=== PATIENT | female | born 1945 | race Caucasian/White ===

== ENCOUNTER → 2017-08-28 10:04 | Outpatient (CLI) | payer MEDICARE, OTHER, SELFPAY ==
--- NOTE | 2017-08-28 | DI.ECHO.S_ITS ---
[facility] +---------+ [facility] +---------+ : : [address] : [address] : : : : [phone] : : : : Phone: [phone] +---------+ Echocardiogram Report + + :Name: ELIAS CAMP Study Date: 08/28/2017 Height: 62 in : :[facility] Exam Location: IS Weight: 144 lb : : Gender: Female BSA: 1.7 m2 : :: 1945 Age: 71 yrs BP: 150/80 mmHg: :Reason For Study: Aortic valve stenosis : :Ordering Physician: Madi : :Zeke Performed By: Audrey Page : + + Interpretation Summary The aortic valve is bicuspid. The peak aortic velocity is 2.4 m/sec. The calculated aortic valve area is 1.7 cm2. The left ventricle is normal in size. There is mild concentric left ventricular hypertrophy. The ejection fraction is estimated to be 60-65%. No other echocardiographic abnormalities seen. Procedure: A two-dimensional transthoracic echocardiogram with color flow and Doppler was performed. The study quality was technically adequate. Comparison is made with the echocardiogram of 05/09/15. The patient was in normal sinus rhythm during the exam. Left Ventricle: The left ventricle is normal in size. There is mild concentric left ventricular hypertrophy. The ejection fraction is estimated to be 60-65%. There are no focal wall motion abnormalities. Assessment of diastolic parameters indicates a relaxation abnormality of the left ventricle, consistent with normal filling pressures. Right Ventricle: The right ventricle is normal in size and function. Atria: The left atrium is mildly dilated. Right atrial size is normal. There is no Doppler evidence for an interatrial shunt. Mitral Valve: The mitral valve is normal in structure and function. There is mild mitral annular calcification. There is trace mitral regurgitation. Aortic Valve: The aortic valve is not well visualized. The aortic valve is bicuspid. The peak aortic velocity is 2.4 m/sec. The peak aortic velocity on the previous exam was 2.7 m/sec. The calculated aortic valve area is 1.7 cm2. The aortic valve mean gradient is 12.4 mmHg. There is mild aortic stenosis. There is trace aortic regurgitation. Tricuspid Valve: The tricuspid valve is normal in structure and function. There is a trace or physiologic amount of tricuspid regurgitation. Pulmonary artery pressures cannot be estimated because of the lack of a measurable TR jet velocity. Pulmonic Valve: The pulmonic valve is not well visualized. There is a trace or physiologic amount of pulmonic regurgitation. Great Vessels: The aortic root is mildly dilated. The ascending aorta could not be visualized. The aortic arch could not be visualized. The pulmonary artery is not well visualized, but is probably normal size. The IVC is of normal diameter and collapses greater than 50% with a sniff. This suggests a low right atrial pressure of 3 mm Hg. Pericardium/ Pleura There is no pericardial effusion. There is no pleural effusion. MMode/2D Measurements & Calculations LVIDd: 4.2 cm LVOT diam: 2.2 cm LVIDs: 3.3 cm Ao root diam: 3.9 cm FS: 20.9 % EPSS: 0.55 cm IVSd: 0.65 cm LVPWd: 0.88 cm LV gonzales. diameter/BSA (cm/m^2): 2.5 LV sys. diameter/BSA (cm/m^2): 2.0 LA dimension: 1.6 cm RA long axis: 5.0 cm LA A2 area: 21.7 cm2 RA area: 15.3 cm2 LA A4 area: 18.9 cm2 RA vol: 39.8 ml LA length (vol): 5.3 cm RA : 23.9 ml/m2 LA vol: 65.7 ml IVC diam: 0.95 cm LA vol index: 39.5 ml/m2 RVD1 (basal): 3.7 cm TAPSE: 2.1 cm Doppler Measurements & Calculations Ao V2 max: 243.8 cm/sec LVOT Max Abdon: 104.7 cm/sec Ao V2 mean: 166.0 cm/sec LV V1 max P.4 mmHg Ao max P.8 mmHg LV V1 VTI: 23.5 cm Ao mean P.4 mmHg JANAE(I,D): 1.7 cm2 Ao V2 VTI: 51.5 cm JANAE(V,D): 1.6 cm2 sev ratio: 0.46 JANAE indexed to BSA (cm^2/m^2): 1.0 MV E max abdon: 53.8 cm/sec PA V2 max: 67.2 cm/sec MV A max abdon: 77.5 cm/sec PA V2 mean: 44.4 cm/sec MV E/A: 0.69 PA mean P.93 mmHg Med Peak E' Abdon: 4.7 cm/sec PA Accel Time: 0.11 sec E/E' med: 11.5 Lat Peak E' Abdon: 6.9 cm/sec E/E' lat: 7.8 E/e' average: 9.7 MV dec time: 0.33 sec MV P1/2t: 95.3 msec MV P1/2t max badon: 54.2 cm/sec MVA(2t): 2.3 cm2 Reading Physician:03:41 PM
== END ==
PROVIDERS: Family Provider Specialist; PCP Specialist; Visit Provider Internal Medicine Cardiovascular Disease
DX: I35.0 Nonrheumatic aortic (valve) stenosis (principal)
CPT/HCPCS: 93306

== ENCOUNTER → 2019-09-09 12:02 | Outpatient (CLI) | payer MEDICARE, OTHER, SELFPAY ==
--- NOTE | 2019-09-09 | DI.ECHO.S_ITS ---
[place] +---------+ Hospital +---------+ : : [address] [place] : : : : [phone] : : : : Phone: [phone]---------+ Echocardiogram Report + + :Name: ELIAS CAMP Study Date: 09/09/2019 Height: 62 in : :[facility] Weight: 144 lb : : Gender: Female BSA: 1.7 m2 : :: 1945 Age: 73 yrs BP: 150/78 mmHg: :Reason For Study: Bicuspid Aortic Valve : :Ordering Physician: Layne : :Liza So Performed By: Effie Chavez : :Referring: LAYNE GONSALEZ : + + Interpretation Summary Left ventricular systolic function remains normal with an estimated ejection fraction of 65 to 70% without any focal wall motion abnormality. Visually, there is at least borderline concentric LVH. There is likely a diastolic relaxation abnormality but normal filling pressures. There has been no appreciable change since the previous study. The right ventricle appears normal. Pulmonary artery systolic pressure cannot be estimated but CVP is likely 3 mmHg. Both atria are normal in size and have mildly decreased in size since the previous exam. There is a moderately calcified, bicuspid aortic valve with mildly reduced leaflet mobility with probable mild aortic stenosis that is unchanged from the previous exam. Peak transvalvular velocity is 2.4 m/s with a mean gradient of 13 mmHg which is essentially identical to that of the previous study. There continues to be trivial aortic regurgitation that is unchanged. There is no other significant valvular abnormality. The ascending aorta is borderline enlarged and the aortic arch is mildly enlarged. There is a very trivial pericardial effusion seen on today's exam which was not clearly apparent on the previous study. Procedure: A two-dimensional transthoracic echocardiogram with color flow and Doppler was performed. The study quality was technically adequate. Comparison is made with the echocardiogram of 08/28/2017. Left Ventricle: The left ventricle is normal in size. There is borderline concentric left ventricular hypertrophy. Left ventricular systolic function is normal without focal wall motion abnormalities. The ejection fraction is estimated to be 65-70%. Diastolic parameters suggest a relaxation abnormality of the left ventricle, consistent with probable normal filling pressures. There has been no significant change since the previous study. Right Ventricle: The right ventricle is normal in size and function. This is unchanged compared to the previous study. Atria: Both atria are normal in size. Both atria have mildly decreased in size since the prior echo exam. There is no Doppler evidence for an interatrial shunt. Mitral Valve: There is mild mitral annular calcification. The mitral valve leaflets appear borderline thickened, but open well. There is trace mitral regurgitation. Aortic Valve: The aortic valve is bicuspid. The aortic valve is moderately calcified. There is mildly reduced leaflet mobility. There is mild aortic stenosis. This is unchanged compared to the previous study. The aortic valve mean gradient is 13 mmHg. The peak aortic velocity is 2.4 m/sec. The calculated aortic valve area is 1.8 cm2. There is trace aortic regurgitation. Tricuspid Valve: The tricuspid valve is normal in structure and function. There is trace tricuspid regurgitation. Pulmonary artery pressures cannot be estimated because of the lack of a measurable TR jet velocity but the IVC suggests a CVP of around 3 mmHg. Pulmonic Valve: The pulmonic valve is not well visualized. There is no pulmonic valvular regurgitation. There is no other significant valvular heart disease. Great Vessels: The aortic root is normal size. The ascending aorta is at the upper limits of normal in size. The aortic arch is mildly enlarged. The IVC is of normal diameter and collapses greater than 50% with a sniff. This suggests a low right atrial pressure of 3 mm Hg. Pericardium/ Pleura There is a trivial pericardial effusion noted. There is no pleural effusion. MMode/2D Measurements & Calculations LVIDd: 4.4 cm LVOT diam: 2.2 cm LVIDs: 2.8 cm Ao root diam: 3.6 cm FS: 36.3 % asc Aorta Diam: 3.3 cm EPSS: 0.61 cm Ao Arch Diam (Prox Trans): 3.3 cm IVSd: 0.80 cm LVPWd: 0.84 cm LV gonzales. diameter/BSA (cm/m^2): 2.6 LV sys. diameter/BSA (cm/m^2): 1.7 LA A2 area: 20.7 cm2 RA long axis: 3.9 cm LA A4 area: 12.5 cm2 RA area: 11.8 cm2 LA length (vol): 4.1 cm RA vol: 30.2 ml LA vol: 53.0 ml RA : 18.2 ml/m2 LA vol index: 31.9 ml/m2 IVC diam: 0.68 cm RVD1 (basal): 2.9 cm TAPSE: 2.0 cm Doppler Measurements & Calculations Ao V2 max: 237.3 cm/sec LVOT Max Abdon: 115.3 cm/sec Ao V2 mean: 170.4 cm/sec LV V1 max P.3 mmHg Ao max P.5 mmHg LV V1 VTI: 23.7 cm Ao mean P.1 mmHg JANAE(I,D): 1.8 cm2 Ao V2 VTI: 48.8 cm JANAE(V,D): 1.8 cm2 sev ratio: 0.49 JANAE indexed to BSA (cm^2/m^2): 1.1 MV E max abdon: 58.7 cm/sec TR max abdon: 207.0 cm/sec MV A max abdon: 88.2 cm/sec TR max P.2 mmHg MV E/A: 0.67 PA V2 max: 84.0 cm/sec Med Peak E' Abdon: 3.5 cm/sec PA V2 mean: 55.9 cm/sec E/E' med: 17.0 PA mean P.5 mmHg Lat Peak E' Abdon: 7.3 cm/sec E/E' lat: 8.0 E/e' average: 12.5 MV dec time: 0.26 sec SV(LVOT): 88.4 ml Reading Physician:PM
== END ==
PROVIDERS: Family Provider Specialist; PCP Specialist; Referring Provider Hospitalist; Visit Provider Hospitalist
DX: Q23.1 Congenital insufficiency of aortic valve (principal); Q23.0 Congenital stenosis of aortic valve
CPT/HCPCS: 93306

== ENCOUNTER 2020-08-08 08:47 | Day surgery (SDC) | payer MEDICARE, OTHER, SELFPAY ==
[2020-08-08] MEDS: CATARACT EYE COMPOUND (10 DROPS/SYRINGE) 3 DROPS EYE-OP (09:38)
[2020-08-08] MEDS: PROPARACAINE 0.5% OPHTH SOL 2 DROPS EYE-OP (09:38)
[2020-08-08 09:43] VITALS: BP 124/75; PULSE 71; RESP 16; TEMP 36.7; O2SAT 100; BMI 26.2
--- NOTE | 2020-08-08 10:16 | P.OP_ITS ---
Operative Date/Time/Diagnoses Pre-op diagnosis: Nuclear Cataract Left eye Post-op diagnosis: same Procedure & Clinicians Same procedure as scheduled: Yes Surgeon: Maikol Hester Anesthesia Type: MAC +/- and Sedation Operative Notes Procedure in detail: Patient brought to the operating suite. Tetracaine drops placed in the left eye. Marking instrument was used to ga vertical and horizontal meridians. Patient was prepped and draped in sterile manner. Wire lid speculum was placed in the eye. Marking instrument was used to ga 170 degree meridian. Betadine drops were placed on the eye. This was irrigated. Lidocaine jelly was placed on the eye. A paracentesis port was created with a side-port blade. 0.1 mL 1% preservative free lidocaine was injected into the anterior chamber. The anterior chamber was deepened with viscoelastic. 2.6 mm keratome was used to create a temporal clear corneal incision. Cystotome and Utrata forceps were used to create continuous tear capsulorrhexis. Balanced salt solution was used to hydro dissect the nucleus. The phacoemulsification handpiece was inserted and the nucleus was removed using the stop and chop technique. The irrigation aspiration handpiece was inserted and the remaining cortex was removed. Anterior chamber was deepened with viscoelastic. An Agosto [id number] intraocular lens with a power of 22.0 was injected into the capsular bag. Irrigation aspiration handpiece was inserted and the remaining viscoelastic was removed. The lens was rotated to the 170 degree meridian. Incision was hydrated with balanced salt solution and found to be leak free with pressure with Weck- Maria Esther sponges. 0.1 mL Vigamox injected anterior chamber. 0.3 mL Kenalog 10 mg was injected subconjunctivally. Lid speculum was removed. The patient left the operating room in excellent condition. Complications: none Post-operative Condition: stable Disposition: same day surgery
--- NOTE | 2020-08-08 10:16 | PM.PREOP ---
Pre-operative Note Interval Note History & Physical reviewed/Exam performed by Physician: Yes Changes to H&P: No
[2020-08-08] MEDS: MOXIFLOXACIN INJ 4 MG/0.8 ML VIAL 0.5 MG EYE-OP (10:54)
[2020-08-08] MEDS: LIDOCAINE 2% (GLYDO) 6 ML GEL TOP (10:54)
[2020-08-08] MEDS: PHENYLEPHRINE/LIDOCAINE VIAL (OR) 0.2 ML EYE-OP (10:54)
[2020-08-08] MEDS: TRIAMCINOLONE 50 MG/5 ML VIAL INJ (10:54)
[2020-08-08] MEDS: BALANCED SALT IRRIG SOLN NO.2 500 ML, EPINEPHrine 1 MG IRR (10:55)
[2020-08-08] MEDS: TETRACAINE 0.5% OPHTH DROPS 4 ML 2 DROPS EYE-OP (10:55)
[2020-08-08] MEDS: CHONDROIDTIN/SOD HYALURONATE 1.05 ML SYRINGE INTRAOCULA (10:55)
[2020-08-08 11:18] VITALS: BP 116/70; PULSE 69; RESP 16; TEMP 36.3; O2SAT 97
== END 2020-08-08 11:17 | disposition home or self-care (01) ==
PROVIDERS: Family Provider Specialist; PCP Specialist; Referring Provider Ophthalmology; Visit Provider Ophthalmology
PROC: (CPT 66984; principal; 2020-08-08 10:45)
DX: H25.12 Age-related nuclear cataract, left eye (principal); G62.9 Polyneuropathy, unspecified; K21.9 Gastro-esophageal reflux disease without esophagitis
CPT/HCPCS: 66984; J0171; J2250; J3010; J3301; V2787

== ENCOUNTER 2020-08-22 10:57 | Day surgery (SDC) | payer MEDICARE, OTHER, SELFPAY ==
[2020-08-22 11:30] VITALS: BP 156/78; PULSE 69; RESP 13; TEMP 36.4; O2SAT 98; BMI 25.7
[2020-08-22] MEDS: PROPARACAINE 0.5% OPHTH SOL 2 DROPS EYE-OP (11:40)
[2020-08-22] MEDS: CATARACT EYE COMPOUND (10 DROPS/SYRINGE) 3 DROPS EYE-OP (11:40)
[2020-08-22 11:46] VITALS: BP 134/74
--- NOTE | 2020-08-22 12:26 | P.OP_ITS ---
Operative Date/Time/Diagnoses Pre-op diagnosis: Nuclear cataract right eye Procedure & Clinicians Procedure: Cataract Surgery Same procedure as scheduled: Yes Surgeon: Maikol Hester Anesthesia Type: MAC +/- and Sedation Operative Notes Procedure in detail: Patient brought to the operating suite. Tetracaine drops placed in the right eye. Marking instrument was used to ga vertical and horizontal meridians. Patient was prepped and draped in sterile manner. Wire lid speculum was placed in the eye. Marking instrument was used to ga 10 degree meridian. Betadine drops were placed on the eye. This was irrigated. Lidocaine jelly was placed on the eye. A paracentesis port was created with a side-port blade. 0.1 mL 1% preservative free lidocaine was injected into the anterior chamber. The anterior chamber was deepened with viscoelastic. 2.6 mm keratome was used to create a temporal clear corneal incision. Cystotome and Utrata forceps were used to create continuous tear capsulorrhexis. Balanced salt solution was used to hydro dissect the nucleus. The phacoemulsification handpiece was inserted and the nucleus was removed using the stop and chop technique. The irrigation aspiration handpiece was inserted and the remaining cortex was removed. Anterior chamber was deepened with viscoelastic. An Agosto [id number] intraocular lens with a power of 21.0 was injected into the capsular bag. Irrigation aspiration handpiece was inserted and the remaining viscoelastic was removed. The lens was rotated to the 10 degree meridian. Incision was hydrated with balanced salt solution and found to be leak free with pressure with Weck- Maria Esther sponges. 0.1 mL Vigamox injected anterior chamber. 0.3 mL Kenalog 10 mg was injected subconjunctivally. Lid speculum was removed. The patient left the operating room in excellent condition. Complications: none Post-operative Condition: stable Disposition: same day surgery
--- NOTE | 2020-08-22 12:26 | PM.PREOP ---
Pre-operative Note Interval Note History & Physical reviewed/Exam performed by Physician: Yes Changes to H&P: No
[2020-08-22] MEDS: PHENYLEPHRINE/LIDOCAINE VIAL (OR) 0.2 ML EYE-OP (12:46)
[2020-08-22] MEDS: LIDOCAINE 2% (GLYDO) 6 ML GEL TOP (12:47)
[2020-08-22] MEDS: CHONDROIDTIN/SOD HYALURONATE 1.05 ML SYRINGE INTRAOCULA (12:47)
[2020-08-22] MEDS: TRIAMCINOLONE 50 MG/5 ML VIAL INJ (12:47)
[2020-08-22] MEDS: BALANCED SALT IRRIG SOLN NO.2 500 ML, EPINEPHrine 1 MG IRR (12:48)
[2020-08-22] MEDS: TETRACAINE 0.5% OPHTH DROPS 4 ML 2 DROPS EYE-OP (12:48)
[2020-08-22] MEDS: MOXIFLOXACIN INJ 4 MG/0.8 ML VIAL 0.5 MG EYE-OP (12:48)
[2020-08-22 13:03] VITALS: BP 153/79; PULSE 71; RESP 16; TEMP 36.7; O2SAT 100
--- NOTE | 2020-08-22 13:07 | SUR.PHASEII ---
Pt ready to go, ride called, pt dressed and left in stable condition.
== END 2020-08-22 13:20 | disposition home or self-care (01) ==
PROVIDERS: Family Provider Specialist; PCP Specialist; Referring Provider Ophthalmology; Visit Provider Ophthalmology
PROC: (CPT 66984; principal; 2020-08-22 12:45)
DX: H25.11 Age-related nuclear cataract, right eye (principal); G62.9 Polyneuropathy, unspecified; I10 Essential (primary) hypertension
CPT/HCPCS: 66984; J0171; J2250; J3010; J3301; V2787

== ENCOUNTER → 2021-08-22 13:26 | Outpatient (CLI) | payer MEDICARE, OTHER, SELFPAY ==
--- NOTE | 2021-08-22 | DI.ECHO.S_ITS ---
[place] +---------+ Hospital +---------+ : : [address] : [address] : : : : [phone] : : : : Phone: [phone] +---------+ Echocardiogram Report + + :Name: ELIAS CAMP Study Date: 08/22/2021 Height: 62 in : [id number]: Weight: 142 lb : : Gender: Female BSA: 1.7 m2 : :: 1945 Age: 75 yrs BP: 142/78 mmHg: :Reason For Study: Aortic, Biscupid Valve : : Performed By: Tamar Galvez : :Referring: BETTINA GILBERT : + + Interpretation Summary 1) Normal left ventricular thickness, size, wall motion, and systolic function (EF 65-70%). 2) Normal right ventricular size and function. 3) Mild aortic stenosis present (valve area 1.5cm2, mean gradient 17mmHg). 4) Compared to the Echo done 09/09/2019, no significant change. Procedure: A two-dimensional transthoracic echocardiogram with color flow and Doppler was performed. Images from the parasternal window were difficult to obtain and are suboptimal in quality. Comparison is made with the echocardiogram of 09/09/2019. The patient was in normal sinus rhythm during the exam. The patient had occasional PVCs during the exam. Left Ventricle: The left ventricle appears normal in size, wall thickness, and systolic function without any focal wall motion abnormalities. The ejection fraction is estimated to be 65-70%. Diastolic parameters suggest a relaxation abnormality of the left ventricle, consistent with probable normal filling pressures. Right Ventricle: The right ventricle is normal in size and function. Atria: The left atrium is moderately dilated. Right atrial size is normal. There is no Doppler evidence for an interatrial shunt. Mitral Valve: There is mild mitral annular calcification. There is trace mitral regurgitation. Aortic Valve: The aortic valve is not well visualized. The aortic valve is moderately calcified. The peak aortic velocity is 2.8 m/sec. The peak aortic velocity on the previous exam was 2.4 m/sec. The aortic valve mean gradient is 17.1 mmHg. The calculated aortic valve area is 1.5 cm2. There is trace aortic regurgitation. Tricuspid Valve: The tricuspid valve leaflets are thin and pliable. There is trace tricuspid regurgitation. The right ventricular systolic pressure is estimated to be at least 23 mmHg based on an estimated right atrial pressure of 3 mm Hg. Pulmonic Valve: The pulmonic valve is not well visualized. Great Vessels: The aortic root is normal size. The ascending aorta is at the upper limits of normal in size. The aortic arch is normal in size. The IVC is of normal diameter and collapses greater than 50% with a sniff. This suggests a low right atrial pressure of 3 mm Hg. Pericardium/ Pleura There is no pericardial effusion. MMode/2D Measurements & Calculations LVIDd: 3.7 cm LVOT diam: 2.2 cm LVIDs: 1.9 cm Ao root diam: 3.4 cm FS: 49.5 % asc Aorta Diam: 3.5 cm EPSS: 0.75 cm Ao Arch Diam (Prox Trans): 2.4 cm IVSd: 0.79 cm LVPWd: 0.88 cm LV gonzales. diameter/BSA (cm/m^2): 2.2 LV sys. diameter/BSA (cm/m^2): 1.1 LA A2 area: 21.3 cm2 RA long axis: 4.1 cm LA A4 area: 16.3 cm2 RA area: 12.1 cm2 LA length (vol): 4.4 cm RA vol: 30.4 ml LA vol: 67.1 ml RA : 18.4 ml/m2 LA vol index: 40.6 ml/m2 IVC diam: 0.87 cm RVD1 (basal): 3.4 cm TAPSE: 2.3 cm Doppler Measurements & Calculations Ao V2 max: 277.9 cm/sec LVOT Max Abdon: 110.5 cm/sec Ao V2 mean: 195.2 cm/sec LV V1 max P.9 mmHg Ao max P.9 mmHg LV V1 VTI: 21.7 cm Ao mean P.1 mmHg JANAE(I,D): 1.5 cm2 Ao V2 VTI: 54.6 cm JANAE(V,D): 1.5 cm2 sev ratio: 0.40 JANAE indexed to BSA (cm^2/m^2): 0.89 MV E max abdon: 66.6 cm/sec TR max abdon: 222.4 cm/sec MV A max abdon: 93.9 cm/sec TR max P.8 mmHg MV E/A: 0.71 PA V2 max: 87.4 cm/sec Med Peak E' Abdon: 6.2 cm/sec PA V2 mean: 58.9 cm/sec E/E' med: 10.8 PA mean P.6 mmHg Lat Peak E' Abdon: 6.3 cm/sec PA pr(Accel): 34.0 mmHg E/E' lat: 10.6 E/e' average: 10.7 MV dec time: 0.36 sec SV(AKILA): 80.0 ml Reading Physician:05:32 PM
== END ==
PROVIDERS: Family Provider Specialist; PCP Specialist; Referring Provider Internal Medicine Cardiovascular Disease; Visit Provider Internal Medicine Cardiovascular Disease
DX: Q23.0 Congenital stenosis of aortic valve (principal)
CPT/HCPCS: 93306

== ENCOUNTER → 2022-11-22 07:01 | Outpatient (CLI) | payer MEDICARE, OTHER, SELFPAY ==
[2022-11-22 09:21] LABS: BUN Creatinine Ratio 19.7 (6-22); Blood Urea Nitrogen 12 mg/dL (7-17); Calcium 9.2 mg/dL (8.4-10.2); Carbon Dioxide 26 mmol/L (22-32); Chloride 104 mmol/L (98-107); Cholesterol 198 mg/dL (140-199); Estimated Glomerular Filt Rate > 60 mL/min (>60); Glucose 98 mg/dL (80-110); HDL Cholesterol 53 mg/dL (40-60); HEMOLYSIS < 15 (0-50); LDL Cholesterol Calculated 122 mg/dL (<100); Magnesium 2.2 mg/dL (1.6-2.3); Potassium 4.1 mmol/L (3.4-5.1); Sodium 139 mmol/L (137-145); Triglycerides 115 mg/dL (35-150)
== END ==
PROVIDERS: Family Provider Specialist; PCP Specialist; Referring Provider Internal Medicine Cardiovascular Disease; Visit Provider Internal Medicine Cardiovascular Disease
DX: I10 Essential (primary) hypertension (principal)
CPT/HCPCS: 36415; 80048; 80061; 83735

== ENCOUNTER → 2022-12-31 09:39 | Outpatient (CLI) | payer MEDICARE, OTHER, SELFPAY ==
--- NOTE | 2022-12-31 | DI.ECHO.S_ITS ---
[place] +---------+ Hospital +---------+ : : [address] : [address] : : : : [phone] : : : : Phone: [phone] +---------+ Echocardiogram Report + + :Name: ELIAS CAMP Study Date: 12/31/2022 Height: 61 in : :[facility] ReadingLocation: Weight: 143 lb : : Gender: Female BSA: 1.6 m2 : :: 1945 Age: 77 yrs BP: 129/77 mmHg: :Reason For Study: ATHEROSCLEROSIS OF AORTA : :Ordering Physician: OFELIA, : :BETTINA Performed By: Effie Chavez : :Referring: BETTINA GILBERT : + + Interpretation Summary The left ventricle is normal in size and wall thickness. The left ventricular ejection fraction is normal. The ejection fraction is estimated to be 65-70%. No significant change in LVEF. The right ventricle is normal in size and function. The aortic valve is bicuspid. The aortic valve is moderately calcified. The peak aortic velocity is 2.8 m/sec. The aortic valve mean gradient is 20 mmHg. sev ratio: 0.40 The calculated aortic valve area is 1.3 cm2. The peak aortic velocity on the previous exam was 2.8 m/sec. There is mild to moderate aortic stenosis. There is mild luminal irregularity and echogenicity in the abdominal aorta, suggestive of aortic atherosclerotic disease. Mild atherosclerotic plaque(s) in the aortic arch. The IVC is of normal diameter and collapses greater than 50% with a sniff. This suggests a low right atrial pressure of 3 mm Hg. Procedure: A two-dimensional transthoracic echocardiogram with color flow and Doppler was performed. The study quality was technically adequate. Comparison is made with the echocardiogram of 08/22/2021. The patient was in sinus rhythm with heart rates between 71-83 bpm during the exam. Left Ventricle: The left ventricle is normal in size and wall thickness. There is no thrombus. The ejection fraction is estimated to be 65-70%. The left ventricular ejection fraction is normal. There are no focal wall motion abnormalities. MV E/A: 0.67 Med Peak E' Abdon: 3.8 cm/sec E/E' med: 15.8. Right Ventricle: The right ventricle is normal in size and function. Atria: The left atrial size is normal. Right atrial size is normal. There is no Doppler evidence for an interatrial shunt. Mitral Valve: There is mild mitral annular calcification. The mitral valve leaflets appear mildly thickened, but open well. No significant mitral valve stenosis. There is trace mitral regurgitation. Aortic Valve: The aortic valve is moderately calcified. The aortic valve is bicuspid. There is mild to moderate aortic stenosis. The peak aortic velocity is 2.8 m/sec. The aortic valve mean gradient is 20 mmHg. The calculated aortic valve area is 1.3 cm2. The peak aortic velocity on the previous exam was 2.8 m/sec. There is trace aortic regurgitation. Tricuspid Valve: The tricuspid valve is normal. There is trace tricuspid regurgitation. The right ventricular systolic pressure is estimated to be at least 26 mmHg based on an estimated right atrial pressure of 3 mm Hg. Pulmonic Valve: The pulmonic valve leaflets are thin and pliable; valve motion is normal. There is no pulmonic valvular regurgitation. Great Vessels: The aortic root is normal size. The dimensions of the ascending aorta are normal. There is mild luminal irregularity and echogenicity in the abdominal aorta, suggestive of aortic atherosclerotic disease. Mild atherosclerotic plaque(s) in the aortic arch. The IVC is of normal diameter and collapses greater than 50% with a sniff. This suggests a low right atrial pressure of 3 mm Hg. Pericardium/ Pleura There is no pericardial effusion. There is no pleural effusion. MMode/2D Measurements & Calculations LVIDd: 4.1 cm LVOT diam: 2.1 cm LVIDs: 2.5 cm Ao root diam: 3.7 cm FS: 38.6 % asc Aorta Diam: 3.5 cm EPSS: 0.43 cm Ao Arch Diam (Prox Trans): 3.2 cm IVSd: 0.82 cm LVPWd: 0.82 cm LV gonzales. diameter/BSA (cm/m^2): 2.5 LV sys. diameter/BSA (cm/m^2): 1.5 LA A2 area: 17.8 cm2 RA long axis: 4.5 cm LA A4 area: 12.9 cm2 RA area: 14.0 cm2 LA length (vol): 4.6 cm RA vol: 36.9 ml LA vol: 43.0 ml RA : 22.5 ml/m2 LA vol index: 26.2 ml/m2 IVC diam: 0.63 cm RVD1 (basal): 2.7 cm RVD2 (mid): 2.0 cm TAPSE: 1.8 cm Doppler Measurements & Calculations Ao V2 max: 283.1 cm/sec LVOT Max Abdon: 104.2 cm/sec Ao V2 mean: 206.6 cm/sec LV V1 max P.4 mmHg Ao max P.0 mmHg LV V1 VTI: 23.4 cm Ao mean P.2 mmHg JANAE(I,D): 1.4 cm2 Ao V2 VTI: 58.9 cm JANAE(V,D): 1.3 cm2 sev ratio: 0.40 JANAE indexed to BSA (cm^2/m^2): 0.85 MV E max abdon: 59.9 cm/sec TR max abdon: 239.6 cm/sec MV A max abdon: 89.5 cm/sec TR max P.0 mmHg MV E/A: 0.67 PA V2 max: 89.7 cm/sec Med Peak E' Abdon: 3.8 cm/sec PA V2 mean: 59.6 cm/sec E/E' med: 15.8 PA mean P.6 mmHg Lat Peak E' Abdon: 7.5 cm/sec PA pr(Accel): 44.7 mmHg E/E' lat: 8.0 E/e' average: 11.9 MV dec time: 0.28 sec SV(LVOT): 82.3 ml Reading Physician:04:19 PM
--- NOTE | 2023-01-01 02:09 | DI.NM.S_ITS ---
DATE OF SERVICE: 12/31/2022 PROCEDURE: Exercise perfusion study. INDICATIONS: Lightheadedness, underlying aortic stenosis, bicuspid aortic valve. CARDIAC STRESS: The patient walked on Samuel protocol for 5 minutes and 30 seconds, achieved maximum heart rate of 129, 90% of target heart rate, 7 METS of workload, EVIE -8%. Test was ended by accident by registered nurse. The patient could have gone further. Resting blood pressure 122/80 and peak blood pressure 160/90 mmHg. No chest pain or anginal symptoms. Baseline rhythm was sinus rhythm with some repolarization changes. During stress, no convincing new ischemic changes. Overall, intermittent PACs, PVCs without any complex arrhythmias like AFib or ventricular tachycardia. RAW DATA: Breast shadow seen. GATED STUDY: Stress LV ejection fraction 86 and resting LV ejection fraction 77% without any obvious wall motion abnormalities. Resting end- diastolic volume 69 mL. TID ratio 0.97, which is within normal limits. Lung/heart ratio 0.50, which is abnormal, suggestive of elevated LV filling pressure. MYOCARDIAL PERFUSION SCAN: Stress supine, resting supine and stress prone images were compared to each other. There is a normal myocardial perfusion. CONCLUSION: I will call this study a normal myocardial perfusion study. Good exercise tolerance. Functional aerobic impairment -8%. Normal hemodynamic response. Resting blood pressure 122/80 and peak blood pressure 160/90. No complex arrhythmias. No anginal symptoms. Overall, low-risk myocardial perfusion scan. However, lung heart ratio 0.50. Consider 2D echo to make sure there is no diastolic dysfunction or worsening aortic stenosis. Noemi Grajeda - CESAR/shsohana/MONICO doc#: [id number]/job#: [id number] dd: 12/31/2022 16:36:00 dt: 01/01/2023 02:00:00 DICTATING MD/COPIES TO: Derek Norwood MD COPIES MNE: MEENA;
== END ==
PROVIDERS: Family Provider Specialist; PCP Specialist; Referring Provider Internal Medicine Cardiovascular Disease; Visit Provider Internal Medicine Cardiovascular Disease
DX: Q23.0 Congenital stenosis of aortic valve (principal); Q23.1 Congenital insufficiency of aortic valve; I70.0 Atherosclerosis of aorta; I34.81 Nonrheumatic mitral (valve) annulus calcification; G45.9 Transient cerebral ischemic attack, unspecified; R42 Dizziness and giddiness
CPT/HCPCS: 78452; 93017; 93306; A9502

== ENCOUNTER → 2023-08-15 10:50 | Outpatient (CLI) | payer MEDICARE, OTHER, SELFPAY ==
[2023-08-15 12:11] LABS: COVID-19 CEPHEID 4-PLEX PCR Negative (Negative); Influenza A - CEPHEID Flu A NEGATIVE (NEGATIVE); Influenza B - CEPHEID Flu B NEGATIVE (NEGATIVE); Respiratory Syncytial Virus Negative (Negative)
== END ==
PROVIDERS: Family Provider Specialist; PCP Specialist; Visit Provider Physician Assistant
DX: R50.9 Fever, unspecified (principal); J02.9 Acute pharyngitis, unspecified; H93.8X9 Other specified disorders of ear, unspecified ear; R09.81 Nasal congestion
CPT/HCPCS: 0241U

== ENCOUNTER → 2024-05-06 11:56 | Outpatient (CLI) | payer MEDICARE, OTHER, SELFPAY ==
--- NOTE | 2024-05-06 11:57 | DI.ECHO.S_ITS ---
[facility]+ [facility] : : [address] : [place] : : [id number] : : Phone: [phone] Echocardiogram Report + + :Name: ELIAS CAMP Study Date: 05/06/2024 Height: 61 in : :Hospital ReadingLocation: Weight: 130 lb : : Gender: Female BSA: 1.6 m2 : :: 1945 Age: 78 yrs BP: 123/71 mmHg: :Reason For Study: AORTIC STENOSIS, BICUSPID VALVE : :Ordering Physician: OFELIA, : :BETTINA Performed By: Effie Chavez : :Referring: BETTINA GILBERT : + + Interpretation Summary The left ventricle is normal in size and wall thickness. Left ventricular ejection fraction is estimated to be 70 +/- 5%. The left ventricle is borderline hyperdynamic. There is no echo evidence for significant left ventricular outflow tract obstruction. The right ventricle is normal in size and function. The aortic valve is bicuspid. The aortic valve is moderately calcified. The peak aortic velocity is 3.7 m/sec. The aortic valve mean gradient is 30 mmHg. The calculated aortic valve area is 1.1 cm2. The peak aortic velocity on the previous exam was 2.8 m/sec. sev ratio: 0.35 There is moderate aortic stenosis. Compared to the prior echo study, there has been an increase in the severity of aortic stenosis. There is mild tricuspid regurgitation. The right ventricular systolic pressure is estimated to be at least 25 mmHg based on an estimated right atrial pressure of 3 mm Hg. The ascending aorta is mildly enlarged. 3.7 cm in diameter. Previously 3.6. Mild atherosclerotic plaque(s) in the aortic arch. There is mild luminal irregularity and echogenicity in the abdominal aorta, suggestive of aortic atherosclerotic disease. Seen on previous echo as well. Procedure: A two-dimensional transthoracic echocardiogram with color flow and Doppler was performed. The study quality was technically adequate. Comparison is made with the echocardiogram of 12/31/2022. The patient was in sinus rhythm with heart rates between 71-89 bpm during the exam. Left Ventricle: The left ventricle is normal in size and wall thickness. There is no echo evidence for significant left ventricular outflow tract obstruction. There is no thrombus. Left ventricular ejection fraction is estimated to be 70 +/- 5%. The left ventricle is borderline hyperdynamic. There are no focal wall motion abnormalities. Diastolic parameters suggest a relaxation abnormality of the left ventricle, consistent with probable normal filling pressures. Right Ventricle: The right ventricle is normal in size and function. There has been no significant change since the previous study. Atria: The left atrial size is normal. There has been no significant change since the previous study. Right atrial size is normal. There is no Doppler evidence for an interatrial shunt. Mitral Valve: The mitral valve leaflets appear mildly thickened, but open well. There is mild mitral annular calcification. There is systolic anterior motion of the chordal apparatus. The mitral valve leaflets are mildly calcified. There is trace mitral regurgitation. Aortic Valve: The aortic valve is bicuspid. The aortic valve is moderately calcified. There is moderate aortic stenosis. The peak aortic velocity is 3.7 m/sec. The aortic valve mean gradient is 30 mmHg. The calculated aortic valve area is 1.1 cm2. The peak aortic velocity on the previous exam was 2.8 m/sec. Compared to the prior echo study, there has been an increase in the severity of aortic stenosis. No aortic regurgitation is present. Tricuspid Valve: There is mild tricuspid regurgitation. The right ventricular systolic pressure is estimated to be at least 25 mmHg based on an estimated right atrial pressure of 3 mm Hg. Pulmonic Valve: The pulmonic valve is not well visualized. There is no pulmonic valvular regurgitation. Great Vessels: The aortic root is normal size. The ascending aorta is mildly enlarged. There is mild luminal irregularity and echogenicity in the abdominal aorta, suggestive of aortic atherosclerotic disease. Mild atherosclerotic plaque(s) in the aortic arch. The IVC is of normal diameter and collapses greater than 50% with a sniff. This suggests a low right atrial pressure of 3 mm Hg. Pericardium/ Pleura There is no pericardial effusion. There is no pleural effusion. MMode/2D Measurements & Calculations LVIDd: 3.8 cm LVOT diam: 2.0 cm LVIDs: 2.5 cm Ao root diam: 3.6 cm FS: 34.6 % asc Aorta Diam: 3.7 cm IVSd: 0.95 cm Ao Arch Diam (Prox Trans): 3.4 cm LVPWd: 0.99 cm LV gonzales. diameter/BSA (cm/m^2): 2.4 LV sys. diameter/BSA (cm/m^2): 1.6 LA A2 area: 15.5 cm2 RA long axis: 5.0 cm LA A4 area: 13.9 cm2 RA area: 15.4 cm2 LA length (vol): 4.5 cm RA vol: 40.3 ml LA vol: 40.4 ml RA : 25.6 ml/m2 LA vol index: 25.7 ml/m2 IVC diam: 0.95 cm RVD1 (basal): 3.2 cm RVD2 (mid): 2.7 cm TAPSE: 2.2 cm Doppler Measurements & Calculations Ao V2 max: 370.7 cm/sec LVOT Max Abdon: 119.4 cm/sec Ao V2 mean: 251.0 cm/sec LV V1 max P.7 mmHg Ao max P.9 mmHg LV V1 VTI: 25.4 cm Ao mean P.4 mmHg JANAE(I,D): 1.1 cm2 Ao V2 VTI: 71.5 cm JANAE(V,D): 1.0 cm2 sev ratio: 0.35 JANAE indexed to BSA (cm^2/m^2): 0.72 MV E max abdon: 74.1 cm/sec TR max abdon: 235.1 cm/sec MV A max abdon: 120.5 cm/sec TR max P.1 mmHg MV E/A: 0.61 PA V2 max: 97.7 cm/sec Med Peak E' Abdon: 5.4 cm/sec PA V2 mean: 68.2 cm/sec E/E' med: 13.8 PA mean P.1 mmHg Lat Peak E' Abdon: 8.2 cm/sec PA pr(Accel): 44.7 mmHg E/E' lat: 9.0 E/e' average: 11.4 MV dec time: 0.24 sec SV(LVOT): 80.9 ml Reading Physician:05:28 PM
== END ==
PROVIDERS: Family Provider Specialist; PCP Specialist; Referring Provider Internal Medicine Cardiovascular Disease; Visit Provider Internal Medicine Cardiovascular Disease
DX: I08.1 Rheumatic disorders of both mitral and tricuspid valves (principal); Q23.0 Congenital stenosis of aortic valve; Q23.1 Congenital insufficiency of aortic valve; I77.89 Other specified disorders of arteries and arterioles; I70.0 Atherosclerosis of aorta
CPT/HCPCS: 93306

== ENCOUNTER → 2024-10-13 10:25 | Outpatient (CLI) | payer MEDICARE, OTHER, SELFPAY ==
--- NOTE | 2024-10-13 10:29 | DI.ECHO.S_ITS ---
[facility] +---------+ [facility] : : [address] : : [place] : : [id number] : : Phone: [phone] Echocardiogram Report + + :Name: ELIAS CAMP Study Date: 10/13/2024 Height: 61 in : :Hospital ReadingLocation: Weight: 135 lb : : Gender: Female BSA: 1.6 m2 : :: 1945 Age: 78 yrs BP: 152/87 mmHg: :Reason For Study: AORTIC STENOSIS : :Ordering Physician: OFELIA, : :BETTINA Performed By: Raulito Castellon : :Referring: BETTINA GILBERT : + + Interpretation Summary The left ventricle is normal in size. The left ventricle is hyperdynamic. The ejection fraction is estimated to be 70-75%. No significant change in LVEF from the previous study. The right ventricle is normal in size and function. The aortic valve is bicuspid. The aortic valve is heavily calcified. The peak aortic velocity is 3.6 m/sec. The aortic valve mean gradient is 32 mmHg. The peak aortic velocity on the previous exam was 3.7 m/sec. sev ratio: 0.29 Overall moderate aortic stenosis. Valve area calculation is not right due to small LV outflow tract diameter 1.6 cm. On previous study LV outflow tract diameter was 2.0 cm. The ascending aorta is mildly enlarged. 3.7 cm in diameter. Unchanged from the previous study. Mild atherosclerotic plaque(s) in the aortic arch. Procedure: A two-dimensional transthoracic echocardiogram with color flow and Doppler was performed. The study quality was technically good. Comparison is made with the echocardiogram of 05/06/2024. The patient was in normal sinus rhythm during the exam. Left Ventricle: The left ventricle is normal in size. There is normal left ventricular wall thickness. There is no echo evidence for significant left ventricular outflow tract obstruction. There is no ventricular septal defect visualized. The ejection fraction is estimated to be 70-75%. The left ventricle is hyperdynamic. There are no focal wall motion abnormalities. MV E/A: 0.51 Med Peak E' Abdon: 3.3 cm/sec E/E' med: 18.2. Right Ventricle: The right ventricle is normal in size and function. Atria: The left atrial size is normal. There has been no significant change since the previous study. Right atrial size is normal. There is no Doppler evidence for an atrial septal defect. Mitral Valve: There is mild to moderate mitral annular calcification. The mitral valve leaflets appear mildly thickened, but open well. No significant mitral valve stenosis. There is trace mitral regurgitation. Aortic Valve: The aortic valve is bicuspid. The aortic valve is heavily calcified. There is moderate aortic stenosis. The peak aortic velocity is 3.6 m/sec. The aortic valve mean gradient is 32 mmHg. The peak aortic velocity on the previous exam was 3.7 m/sec. No aortic regurgitation is present. Tricuspid Valve: The tricuspid valve leaflets are thin and pliable. There is trace tricuspid regurgitation. The right ventricular systolic pressure is estimated to be at least 23 mmHg based on an estimated right atrial pressure of 3 mm Hg. Pulmonic Valve: The pulmonic valve is not well seen, but is grossly normal. There is no pulmonic valvular regurgitation. Great Vessels: The aortic root is normal size. The ascending aorta is mildly enlarged. Mild atherosclerotic plaque(s) in the aortic arch. The pulmonary artery is normal size. The IVC is of normal diameter and collapses greater than 50% with a sniff. This suggests a low right atrial pressure of 3 mm Hg. Pericardium/ Pleura There is no pericardial effusion. There is no pleural effusion. MMode/2D Measurements & Calculations LVIDd: 4.3 cm LVOT diam: 1.6 cm LVIDs: 2.7 cm Ao root diam: 3.8 cm FS: 36.7 % asc Aorta Diam: 3.7 cm EPSS: 0.83 cm Ao Arch Diam (Prox Trans): 3.4 cm IVSd: 0.96 cm LVPWd: 0.93 cm LV gonzales. diameter/BSA (cm/m^2): 2.7 LV sys. diameter/BSA (cm/m^2): 1.7 LA A2 area: 17.5 cm2 RA long axis: 4.7 cm LA A4 area: 14.2 cm2 RA area: 15.4 cm2 LA length (vol): 4.4 cm RA vol: 43.4 ml LA vol: 47.8 ml RA : 27.2 ml/m2 LA vol index: 29.9 ml/m2 IVC diam: 0.98 cm RVD1 (basal): 3.2 cm RVD2 (mid): 2.1 cm TAPSE: 2.4 cm Doppler Measurements & Calculations Ao V2 max: 338.9 cm/sec LVOT Max Abdon: 102.6 cm/sec Ao V2 mean: 257.9 cm/sec LV V1 max P.2 mmHg Ao max P.1 mmHg LV V1 VTI: 23.2 cm Ao mean P.1 mmHg JANAE(I,D): 0.62 cm2 Ao V2 VTI: 79.7 cm JANAE(V,D): 0.64 cm2 sev ratio: 0.29 JANAE indexed to BSA (cm^2/m^2): 0.39 MV E max abdon: 60.7 cm/sec TR max abdon: 225.4 cm/sec MV A max abdon: 119.1 cm/sec TR max P.3 mmHg MV E/A: 0.51 PA V2 max: 91.9 cm/sec Med Peak E' Abdon: 3.3 cm/sec PA V2 mean: 64.5 cm/sec E/E' med: 18.2 PA mean P.8 mmHg Lat Peak E' Abdon: 5.5 cm/sec PA pr(Accel): 44.7 mmHg E/E' lat: 11.1 E/e' average: 14.6 MV dec time: 0.35 sec SV(LVOT): 49.4 ml Reading Physician:04:51 PM
== END ==
PROVIDERS: Family Provider Specialist; PCP Specialist; Referring Provider Internal Medicine Cardiovascular Disease; Visit Provider Internal Medicine Cardiovascular Disease
DX: I34.81 Nonrheumatic mitral (valve) annulus calcification (principal); I35.0 Nonrheumatic aortic (valve) stenosis; I77.810 Thoracic aortic ectasia; Q23.81 Bicuspid aortic valve
CPT/HCPCS: 93306